=== PATIENT | male | born 1965 | race Caucasian/White ===

== ENCOUNTER 2017-05-21 19:18 | Emergency (ER) | payer MEDICAID ==
[2015-02-28 08:40] VITALS: BMI 26.6
[~2017-05-21 19:18] MED LIST: COREG 3.1253.125 MG NG; COREG 3.1253.125 MG PO; COREG6.25 MG PO; CYCLOBENZAPRINE10 MG PO; ELIQUIS2.5 MG PO; HYDROCODONE-APA1 TAB PO; LISINOPRIL2.5 MG PO; OXYCONTIN20 MG PO; PERCOCET 10/3251 TA1 PO; RESTORIL7.5 MG PO
[2017-08-24] MEDS ORDERED: UNISOM SLEEP AI25 MG PO (12:35)
[2017-08-25] MEDS ORDERED: PREDNISONE10 MG PO (10:17)
[2017-08-30] MEDS ORDERED: LOPRESSOR25 MG PO ×2 (09:26)
== END 2017-05-21 23:40 | disposition home or self-care (01) ==
LOC: D.ER 19:18
DX: M25.512 Pain in left shoulder (principal); M25.511 Pain in right shoulder; I50.9 Heart failure, unspecified; Z95.0 Presence of cardiac pacemaker

== ENCOUNTER 2017-06-19 13:05 | Emergency (ER) | payer MEDICAID ==
[2015-02-28 08:40] VITALS: BMI 26.6
[2017-08-24] MEDS ORDERED: UNISOM SLEEP AI25 MG PO (12:35)
[2017-08-25] MEDS ORDERED: PREDNISONE10 MG PO (10:17)
[2017-08-30] MEDS ORDERED: LOPRESSOR25 MG PO ×2 (09:26)
== END 2017-06-19 14:20 | disposition home or self-care (01) ==
LOC: D.ER 13:05
DX: M25.511 Pain in right shoulder (principal); I50.9 Heart failure, unspecified; Z95.0 Presence of cardiac pacemaker

== ENCOUNTER 2017-07-05 20:47 | Emergency (ER) | payer MEDICAID ==
[2015-02-28 08:40] VITALS: BMI 26.6
[2017-08-24] MEDS ORDERED: UNISOM SLEEP AI25 MG PO (12:35)
[2017-08-25] MEDS ORDERED: PREDNISONE10 MG PO (10:17)
[2017-08-30] MEDS ORDERED: LOPRESSOR25 MG PO ×2 (09:26)
== END 2017-07-05 22:56 | disposition home or self-care (01) ==
LOC: D.ER 20:47
DX: M54.12 Radiculopathy, cervical region (principal); M25.512 Pain in left shoulder; M25.511 Pain in right shoulder

== ENCOUNTER 2017-07-06 23:22 | Emergency (ER) | payer MEDICAID ==
[2015-02-28 08:40] VITALS: BMI 26.6
[2017-08-24] MEDS ORDERED: UNISOM SLEEP AI25 MG PO (12:35)
[2017-08-25] MEDS ORDERED: PREDNISONE10 MG PO (10:17)
[2017-08-30] MEDS ORDERED: LOPRESSOR25 MG PO ×2 (09:26)
== END 2017-07-07 01:46 | disposition home or self-care (01) ==
LOC: D.ER 23:22
DX: R42 Dizziness and giddiness (principal); R00.0 Tachycardia, unspecified; I50.9 Heart failure, unspecified; Z95.0 Presence of cardiac pacemaker

== ENCOUNTER 2017-07-09 22:55 | Emergency (ER) | payer MEDICAID ==
[2015-02-28 08:40] VITALS: BMI 26.6
[2017-07-09 23:36] LABS: BASOPHILS 0.2 % (0-2); EOSINOPHILS 2.3 % (0-7); IMMATURE GRANULOCYTES 1.6 % (0-5); LYMPHOCYTES 13.4 % (15-50); MCH 28.8 pg (26.0-34.0); MCHC 33.3 g/dL (31.0-37.0); MCV 86.5 fL (80.0-100.0); MEAN PLATELET VOLUME 9.9 fL (7.4-10.4); MONOCYTES 7.1 % (2-11); NEUTROPHILS 75.4 % (40-80); PLATELET COUNT 215 10x3/uL (130-400); RBC 4.51 10x6/uL (4.20-6.10); RDW 13.1 % (11.5-14.5); WBC 8.2 10x3/uL (4.8-10.8)
[2017-07-09 23:51] LABS: ALKALINE PHOSPHATASE 89 U/L (46-116); ALT (SGPT) 21 U/L (10-68); BILIRUBIN - TOTAL 0.69 mg/dL (0.2-1.3); CALC OSMOLALITY 280 mosm/kg (275-300); CALCIUM 8.8 mg/dL (8.5-10.1); CARBON DIOXIDE 29.6 mmol/L (21.0-32.0); CHLORIDE - SERUM 103 mmol/L (98-107); GLUCOSE 122 mg/dL (74-106); POTASSIUM - SERUM 3.5 mmol/L (3.5-5.1); PROTEIN - SERUM 6.9 g/dL (6.4-8.2); SODIUM 140 mmol/L (136-145); UREA NITROGEN 14 mg/dL (7-18); eGFR NON AFRICAN AMERICAN 84 mL/min (90-120)
[2017-07-09 23:58] LABS: C-REACTIVE PROTEIN 5.4 mg/dL (0.0-0.9); CREATINE KINASE 26 UL (21-232); PRO BNP 68 pg/mL (0-125)
[2017-07-09 23:59] LABS: TROPONIN-I < 0.017 ng/mL (0.000-0.060)
[2017-08-24] MEDS ORDERED: UNISOM SLEEP AI25 MG PO (12:35)
[2017-08-25] MEDS ORDERED: PREDNISONE10 MG PO (10:17)
[2017-08-30] MEDS ORDERED: LOPRESSOR25 MG PO ×2 (09:26)
== END 2017-07-10 00:40 | disposition home or self-care (01) ==
LOC: D.ER 22:55
PROVIDERS: Family Medicine
DX: M54.12 Radiculopathy, cervical region (principal); G89.29 Other chronic pain; M79.602 Pain in left arm; M79.601 Pain in right arm; I50.9 Heart failure, unspecified; Z95.0 Presence of cardiac pacemaker

== ENCOUNTER 2017-07-12 15:26 | Emergency (ER) | payer MEDICAID ==
[2015-02-28 08:40] VITALS: BMI 26.6
[2017-08-24] MEDS ORDERED: UNISOM SLEEP AI25 MG PO (12:35)
[2017-08-25] MEDS ORDERED: PREDNISONE10 MG PO (10:17)
[2017-08-30] MEDS ORDERED: LOPRESSOR25 MG PO ×2 (09:26)
== END 2017-07-12 17:12 | disposition home or self-care (01) ==
LOC: D.ER 15:26
DX: M79.602 Pain in left arm (principal); M79.601 Pain in right arm; M71.9 Bursopathy, unspecified; I50.9 Heart failure, unspecified; Z95.0 Presence of cardiac pacemaker

== ENCOUNTER 2017-07-15 13:44 | Emergency (ER) | payer MEDICAID ==
[2015-02-28 08:40] VITALS: BMI 26.6
[2017-07-15 16:51] LABS: ERYTHROCYTE SEDIMENTATION RATE 50 mm/hr (0-20)
[2017-07-15 17:19] LABS: MACROPHAGES BF 1 %; NEUT - BF 75 %
[2017-07-20 09:08] LABS: ANA REFLEX - DIRECT Negative (Negative)
[2017-07-28 15:21] LABS: AEROBE ID Final report (())
[2017-08-24] MEDS ORDERED: UNISOM SLEEP AI25 MG PO (12:35)
[2017-08-25] MEDS ORDERED: PREDNISONE10 MG PO (10:17)
[2017-08-30] MEDS ORDERED: LOPRESSOR25 MG PO ×2 (09:26)
== END 2017-07-15 17:28 | disposition home or self-care (01) ==
LOC: D.ER 13:44
PROVIDERS: Emergency Medicine; Physician Assistant
DX: M25.562 Pain in left knee (principal); I50.9 Heart failure, unspecified; Z95.0 Presence of cardiac pacemaker

== ENCOUNTER → 2017-08-11 17:56 | Outpatient (CLI) | payer MEDICAID ==
[2015-02-28 08:40] VITALS: BMI 26.6
[~2017-08-11 17:56] MED LIST changes: +LOPRESSOR25 MG PO; +PREDNISONE10 MG PO; +UNISOM SLEEP AI25 MG PO
== END | disposition home or self-care (01) ==
LOC: D.LABREF 17:56
DX: M17.12 Unilateral primary osteoarthritis, left knee (principal); Z11.8 Encounter for screening for other infectious and parasitic diseases

== ENCOUNTER 2017-08-30 05:19 | Inpatient (IN) | payer MEDICAID | END 2017-09-02 14:34 | disposition home health service (06) | DRG 470 | LOC: D.SDCHOLD 05:19 → D.MS 15:20 | PROC: 0SRD0JZ Replacement of Left Knee Joint with Synthetic Substitute, Open Approach (ICD-10-PCS; principal; 2017-08-30) | DX: M17.12 Unilateral primary osteoarthritis, left knee (principal); M90.562 Osteonecrosis in diseases classified elsewhere, left lower leg; I10 Essential (primary) hypertension; Z95.0 Presence of cardiac pacemaker ==

== ENCOUNTER 2017-12-19 00:06 | Emergency (ER) | payer MEDICAID ==
[2017-09-01 04:06] VITALS: BMI 30.3
[2017-12-19 01:36] LABS: BASOPHILS 0.4 % (0-2); EOSINOPHILS 4.8 % (0-7); HEMATOCRIT 40.4 % (42.0-54.0); HEMOGLOBIN 13.5 g/dL (13.5-17.5); IMMATURE GRANULOCYTES 1.3 % (0-5); MCH 28.7 pg (26.0-34.0); MCHC 33.4 g/dL (31.0-37.0); MONOCYTES 6.4 % (2-11); NEUTROPHILS 72.1 % (40-80); RDW 14.2 % (11.5-14.5); WBC 8.3 10x3/uL (4.8-10.8)
[2017-12-19 01:39] LABS: PLATELET COUNT 199 10x3/uL (130-400)
[2017-12-19 01:46] LABS: INR 1.05 (0.85-1.17); PROTIME 13.3 SECONDS (11.6-15.0)
[2017-12-19 01:52] LABS: ALBUMIN 3.2 g/dL (3.4-5.0); ANION GAP 11.9 mmol/L (8-16); BILIRUBIN - TOTAL 0.79 mg/dL (0.2-1.3); CALCIUM 8.8 mg/dL (8.5-10.1); CARBON DIOXIDE 28.3 mmol/L (21.0-32.0); CREATININE - SERUM 1.2 mg/dL (0.6-1.3); POTASSIUM - SERUM 3.2 mmol/L (3.5-5.1); PROTEIN - SERUM 6.9 g/dL (6.4-8.2)
== END 2017-12-19 03:37 | disposition home or self-care (01) ==
LOC: D.ER 00:06
PROVIDERS: Family Medicine
DX: B36.9 Superficial mycosis, unspecified (principal); R93.5 Abnormal findings on diagnostic imaging of other abdominal regions, including retroperitoneum; E87.6 Hypokalemia

== ENCOUNTER → 2017-12-30 10:04 | Outpatient (CLI) | payer MEDICAID ==
[2017-09-01 04:06] VITALS: BMI 30.3
== END | disposition home or self-care (01) ==
LOC: D.MRI 12-29 15:00
DX: M25.551 Pain in right hip (principal)

== ENCOUNTER → 2018-01-11 09:11 | Outpatient (CLI) | payer MEDICAID ==
[2017-09-01 04:06] VITALS: BMI 30.3
== END | disposition home or self-care (01) ==
LOC: D.SP 09:11 → D.RAD 10:00 → D.SP 10:00
DX: M16.11 Unilateral primary osteoarthritis, right hip (principal); Z01.812 Encounter for preprocedural laboratory examination

== ENCOUNTER 2018-06-24 20:08 | Emergency (ER) | payer MEDICAID ==
[2018-06-24 22:20] LABS: BASOPHILS 0.5 % (0-2); EOSINOPHILS 4.7 % (0-7); HEMATOCRIT 43.7 % (42.0-54.0); HEMOGLOBIN 14.7 g/dL (13.5-17.5); IMMATURE GRANULOCYTES 0.7 % (0-5); LYMPHOCYTES 14.4 % (15-50); MCH 28.9 pg (26.0-34.0); MCHC 33.6 g/dL (31.0-37.0); MEAN PLATELET VOLUME 9.9 fL (7.4-10.4); MONOCYTES 9.6 % (2-11); NEUTROPHILS 70.1 % (40-80); PLATELET COUNT 202 10x3/uL (130-400); RBC 5.08 10x6/uL (4.20-6.10); RDW 13.8 % (11.5-14.5); WBC 8.1 10x3/uL (4.8-10.8)
[2018-06-24 22:35] LABS: ALBUMIN 3.6 g/dL (3.4-5.0); ALKALINE PHOSPHATASE 95 U/L (46-116); ALT (SGPT) 16 U/L (10-68); BILIRUBIN - TOTAL 0.89 mg/dL (0.2-1.3); CALC OSMOLALITY 277 mosm/kg (275-300); CALCIUM 9.2 mg/dL (8.5-10.1); CARBON DIOXIDE 30.5 mmol/L (21.0-32.0); CHLORIDE - SERUM 103 mmol/L (98-107); CREATINE KINASE 69 UL (21-232); CREATININE - SERUM 1.1 mg/dL (0.6-1.3); GLUCOSE 90 mg/dL (74-106); POTASSIUM - SERUM 3.9 mmol/L (3.5-5.1); PROTEIN - SERUM 7.5 g/dL (6.4-8.2); SODIUM 139 mmol/L (136-145); TROPONIN-I < 0.017 ng/mL (0.000-0.060); UREA NITROGEN 12 mg/dL (7-18); eGFR NON AFRICAN AMERICAN 75 mL/min (90-120)
== END 2018-06-25 00:01 | disposition home or self-care (01) ==
LOC: D.ER 20:08
PROVIDERS: Emergency Medicine
DX: S46.211A Strain of muscle, fascia and tendon of other parts of biceps, right arm, initial encounter (principal); X58.XXXA Exposure to other specified factors, initial encounter; Y93.89 Activity, other specified; Y92.019 Unspecified place in single-family (private) house as the place of occurrence of the external cause; Z95.0 Presence of cardiac pacemaker; I10 Essential (primary) hypertension

== ENCOUNTER 2018-07-11 14:15 | Inpatient (IN) | payer MEDICARE ==
[~2018-07-11] VITALS: Ht 175.3 cm; Wt 90.9 kg
--- NOTE | ~2018-07-11 | MORECARE ---
CASE MANAGEMENT DISCHARGE SUMMARY PATIENT: SUPRIYA CAMPO UNIT: [id number] ADM DATE: 07/11/18 AGE: 52 : 67 SEX: M ROOM/BED: D.1202 AUTHOR: TOD RICHARDSON PHYSICIAN: REFERRING PHYSICIAN: RO MORRISON MD DATE OF SERVICE: 07/13/18 Discharge Plan Patient Name: SUPRIYA CAMPO Facility: [facility]:[place] : 1965 Planned Disposition: Home Anticipated Discharge Date: 07/13/18 Discharge Date: 07/13/2018 Expected LOS: 2 Initial Reviewer: [email or web address] Initial Review Date: 07/13/2018 Generated: 07/13/18 5:15 pm DCPIA - Discharge Planning Initial Assessment Updated by [email or web address]: Abhay Yin on 07/13/18 4:14 pm * Is the patient Alert and Oriented? Yes * How many steps to enter\exit or inside your home? NONE * PCP DR. PRISCILLA VELAZCO * Pharmacy [facility] * Preadmission Environment Home Alone * ADLs Independent * Equipment Bedside Commode Cane Walker * Other Equipment NO MEDICAL EQUIPMENT PROVIDER PREFERENCE * List name and contact numbers for known caregivers / representatives who currently or will assist patient after discharge: FRANCOISE PEREZ DTR, * Verbal permission to speak to the caregivers and representatives has been obtained from the patient. N/A * Community resources currently utilized None * Please name any agencies selected above. NONE * Additional services required to return to the preadmission environment? No * Can the patient safely return to the preadmission environment? Yes * Has this patient been hospitalized within the prior 30 days at any hospital? No Coverage Notice Reviewer: [id number] - Abhay Yin Notice Issued Date-Time: 07/13/2018 13:35 Notice Type: IM Discharge Notice Notice Delivered To: Patient Relationship to Patient: Industrial Nurse Name: Delivery Method: HAND - Hand Delivered Sonja Days: Prior Verbal Notification: Recipient Understood Notice: Yes Recipient Signature: Yes Med Rec Note Co-signed by Attending: Coverage Notice Comment: Patient Name: SUPRIYA CAMPO Page [id number] at 1616 All edits/amendments must be made on the electronic document DICTATION DATE: 07/13/181614 VESSEL LINER: MEENU 07/13/181614 RPT#: [id number] DC DATE:07/13/18 STATUS: DIS IN [facility] [address] [place] [address] END OF REPORT
--- NOTE | ~2018-07-11 | MORECARE ---
CASE MANAGEMENT DISCHARGE SUMMARY PATIENT: SUPRIYA CAMPO UNIT: [id number] ADM DATE: 07/11/18 AGE: 52 : 67 SEX: M ROOM/BED: D.1202 AUTHOR: DYLAN,DOC PHYSICIAN: REFERRING PHYSICIAN: RO MORRISON MD DATE OF SERVICE: 07/13/18 Discharge Plan Patient Name: SUPRIYA CAMPO Facility: [facility]:[place] : 1965 Planned Disposition: Home Anticipated Discharge Date: 07/13/18 Discharge Date: 07/13/2018 Expected LOS: 2 Initial Reviewer: [email or web address] Initial Review Date: 07/13/2018 Generated: 07/13/18 5:26 pm Comments DCP- Discharge Planning Updated by [id number]: Abhay Yin on 07/13/18 3:[address] Patient Name: SUPRIYA CAMPO Admission Status: ER Accout number: [id number] Admission Date: 07-11-2018 : 1965 Admission Diagnosis: Attending: RO VANESSA Current LOS: 2 Anticipated DC Date: 07-13-2018 Planned Disposition: Home Primary Insurance: UNINSURED DISCOUNT PLAN Discharge Planning Comments: CM MET WITH PT IN ROOM TO DISCUSS DISCHARGE PLANNING AND NEEDS. PT REPORTS LIVING AT HOME INDEPENDENTLY AND ALONE. PT HAS "EVERYTHING" HE COULD POSSIBLY NEED AT HOME STATING HE HAS IT FROM A PREVIOUS KNEE SURGERY. PT HAS NOT PREFERNCE ON MEDICAL EQUIPMENT PROVIDER. PT HAS NO OUTSIDE SERVICES ASSISTING IN THE HOME. CM DISCUSSED AVAILABILITY OF HOME HEALTH, REHAB SERVICES AND MEDICAL EQUIPMENT. PT DENIES DISCHARGE NEEDS, REPORTS HE WILL CALL A FRIEND WHO WILL PICK HIM UP FOR DISCHARGE HOME. IMPORTANT MESSAGE FROM MEDICARE PROVIDED AND EXPLAINED. BEDSIDE NURSE NOTIFIED. Embossing Press Operator: Abhay Yin DCPIA - Discharge Planning Initial Assessment Updated by [id number]: Abhay Yin on 07/13/18 4:14 pm * Is the patient Alert and Oriented? Yes * How many steps to enter\\exit or inside your home? NONE * PCP DR. PRISCILLA VELAZCO * Pharmacy [facility] * Preadmission Environment Home Alone * ADLs Independent * Equipment Bedside Commode Cane Walker * Other Equipment NO MEDICAL EQUIPMENT PROVIDER PREFERENCE * List name and contact numbers for known caregivers / representatives who currently or will assist patient after discharge: FRANCOISE PEREZ, DTR, * Verbal permission to speak to the caregivers and representatives has been obtained from the patient. N/A * Community resources currently utilized None * Please name any agencies selected above. NONE * Additional services required to return to the preadmission environment? No * Can the patient safely return to the preadmission environment? Yes * Has this patient been hospitalized within the prior 30 days at any hospital? No Coverage Notice Reviewer: [email or web address] Darline Yin Notice Issued Date-Time: 07/13/2018 13:35 Notice Type: IM Discharge Notice Notice Delivered To: Patient Relationship to Patient: Fisher Gill Net Name: Delivery Method: HAND - Hand Delivered Sonja Days: Prior Verbal Notification: Recipient Understood Notice: Yes Recipient Signature: Yes Med Rec Note Co-signed by Attending: Coverage Notice Comment: Last DP export: 07/13/18 3:15 Patient Name: SUPRIYA CAMPO Page [phone] at 1626 All edits/amendments must be made on the electronic document DICTATION DATE: 07/13/181624 SUEDING AND BUFFING MACHINE OPERATOR: MEENU 07/13/185 RPT#: [id number] DC DATE:07/13/18 STATUS: DIS IN [facility] [address] [place] [address] END OF REPORT
[~2018-07-11 14:15] MED LIST changes: +NORCO 5/325 TAB1 TAB PO; +TORADOL10 MG PO
[2018-07-11 15:23] LABS: BASOPHILS 0.3 % (0-2); EOSINOPHILS 2.3 % (0-7); HEMATOCRIT 42.3 % (42.0-54.0); HEMOGLOBIN 14.5 g/dL (13.5-17.5); IMMATURE GRANULOCYTES 0.5 % (0-5); LYMPHOCYTES 11.3 % (15-50); MCH 29.1 pg (26.0-34.0); MCHC 34.3 g/dL (31.0-37.0); MCV 84.8 fL (80.0-100.0); MEAN PLATELET VOLUME 10.2 fL (7.4-10.4); MONOCYTES 5.8 % (2-11); NEUTROPHILS 79.8 % (40-80); PLATELET COUNT 213 10x3/uL (130-400); RBC 4.99 10x6/uL (4.20-6.10); RDW 13.3 % (11.5-14.5); WBC 7.8 10x3/uL (4.8-10.8)
[2018-07-11 15:37] LABS: ALBUMIN 3.4 g/dL (3.4-5.0); ALKALINE PHOSPHATASE 96 U/L (46-116); ALT (SGPT) 17 U/L (10-68); BILIRUBIN - TOTAL 0.86 mg/dL (0.2-1.3); CALC OSMOLALITY 282 mosm/kg (275-300); CALCIUM 8.9 mg/dL (8.5-10.1); CARBON DIOXIDE 29.4 mmol/L (21.0-32.0); CHLORIDE - SERUM 103 mmol/L (98-107); CREATININE - SERUM 1.1 mg/dL (0.6-1.3); GLUCOSE 95 mg/dL (74-106); POTASSIUM - SERUM 3.6 mmol/L (3.5-5.1); PROTEIN - SERUM 7.5 g/dL (6.4-8.2); SODIUM 142 mmol/L (136-145); UREA NITROGEN 13 mg/dL (7-18); eGFR NON AFRICAN AMERICAN 75 mL/min (90-120)
[2018-07-11 20:23] VITALS: BP 136/80
[2018-07-11 22:46] VITALS: BP 136/80; BMI 29.6
[2018-07-12 00:33] VITALS: BP 155/91
[2018-07-12 04:45] VITALS: BP 120/76
[2018-07-12 06:50] LABS: BASOPHILS 0.4 % (0-2); EOSINOPHILS 4.6 % (0-7); HEMATOCRIT 39.6 % (42.0-54.0); IMMATURE GRANULOCYTES 0.4 % (0-5); LYMPHOCYTES 13.5 % (15-50); MCH 28.1 pg (26.0-34.0); MCHC 32.8 g/dL (31.0-37.0); MCV 85.5 fL (80.0-100.0); MEAN PLATELET VOLUME 10.2 fL (7.4-10.4); MONOCYTES 9.4 % (2-11); NEUTROPHILS 71.7 % (40-80); PLATELET COUNT 191 10x3/uL (130-400); RBC 4.63 10x6/uL (4.20-6.10); RDW 13.7 % (11.5-14.5); WBC 5.6 10x3/uL (4.8-10.8)
[2018-07-12 07:18] LABS: ALBUMIN 2.8 g/dL (3.4-5.0); ANION GAP 13.3 mmol/L (8-16); BILIRUBIN - TOTAL 0.91 mg/dL (0.2-1.3); CALCIUM 8.5 mg/dL (8.5-10.1); CARBON DIOXIDE 24.7 mmol/L (21.0-32.0); CREATININE - SERUM 1.2 mg/dL (0.6-1.3); PROTEIN - SERUM 6.3 g/dL (6.4-8.2)
[2018-07-12 08:35] VITALS: BP 113/68
[2018-07-12 15:46] VITALS: Ht 175.3 cm; Wt 90.9 kg
[2018-07-12 16:17] VITALS: BP 112/86
[2018-07-12 17:56] VITALS: BP 124/78
[2018-07-12 20:00] VITALS: BP 116/62
[2018-07-13 00:02] VITALS: BP 131/85
[2018-07-13 04:00] VITALS: BP 130/74
[2018-07-13 06:44] LABS: BASOPHILS 0.3 % (0-2); EOSINOPHILS 5.2 % (0-7); HEMATOCRIT 37.8 % (42.0-54.0); HEMOGLOBIN 12.3 g/dL (13.5-17.5); IMMATURE GRANULOCYTES 0.5 % (0-5); LYMPHOCYTES 11.6 % (15-50); MCH 28.1 pg (26.0-34.0); MCHC 32.5 g/dL (31.0-37.0); MCV 86.5 fL (80.0-100.0); MEAN PLATELET VOLUME 10.2 fL (7.4-10.4); MONOCYTES 7.8 % (2-11); NEUTROPHILS 74.6 % (40-80); PLATELET COUNT 179 10x3/uL (130-400); RBC 4.37 10x6/uL (4.20-6.10); RDW 13.4 % (11.5-14.5); WBC 6.3 10x3/uL (4.8-10.8)
[2018-07-13 07:37] LABS: ALBUMIN 2.6 g/dL (3.4-5.0); ANION GAP 15.7 mmol/L (8-16); BILIRUBIN - TOTAL 0.9 mg/dL (0.2-1.3); CALCIUM 8.1 mg/dL (8.5-10.1); CARBON DIOXIDE 22.9 mmol/L (21.0-32.0); CREATININE - SERUM 1.2 mg/dL (0.6-1.3); POTASSIUM - SERUM 3.6 mmol/L (3.5-5.1); PROTEIN - SERUM 6.1 g/dL (6.4-8.2)
[2018-07-13 07:39] LABS: VANCOMYCIN - TROUGH 67.9 ug/mL (10.0-20.0)
[2018-07-13] MEDS ORDERED: NORCO 10-325 TA1 TAB PO (12:32)
== END 2018-07-13 15:18 | disposition home or self-care (01) | DRG 603 ==
LOC: D.ER 14:15 → D.EDHOLD 18:32 → D.M3 18:32
PROVIDERS: Family Medicine
PROC: 2W3EX1Z Immobilization of Right Hand using Splint (ICD-10-PCS; principal; 2018-07-12)
DX: L03.113 Cellulitis of right upper limb (principal); S62.001A Unspecified fracture of navicular [scaphoid] bone of right wrist, initial encounter for closed fracture; X58.XXXA Exposure to other specified factors, initial encounter; I10 Essential (primary) hypertension; Z95.0 Presence of cardiac pacemaker

== ENCOUNTER → 2018-07-14 13:35 | Outpatient (CLI) | payer MEDICARE ==
[2018-07-12 15:46] VITALS: BMI 29.6
[~2018-07-14 13:35] MED LIST changes: +NORCO 10-325 TA1 TAB PO
== END | disposition home or self-care (01) ==
LOC: D.RAD 13:35
DX: M25.511 Pain in right shoulder (principal)

== ENCOUNTER → 2018-08-18 07:00 | Day surgery (SDC) | payer MEDICARE ==
[2018-08-16 15:11] LABS: HEMOGLOBIN 15.4 g/dL (13.5-17.5); MCH 29.3 pg (26.0-34.0); MCHC 34.2 g/dL (31.0-37.0); MCV 85.7 fL (80.0-100.0); MEAN PLATELET VOLUME 10.1 fL (7.4-10.4); RBC 5.25 10x6/uL (4.20-6.10); RDW 14.1 % (11.5-14.5); WBC 8.1 10x3/uL (4.8-10.8)
[~2018-08-18] VITALS: Ht 175.3 cm; Wt 89.4 kg
[~2018-08-18 07:00] MED LIST changes: +HYDROCODON-ACE1 EA10 PO; +MIRALAX17 GM PO
[2018-08-18 08:45] VITALS: BP 122/80; Ht 175.3 cm; Wt 89.4 kg
[2018-08-18 08:50] LABS: CALC OSMOLALITY 278 mosm/kg (275-300); CALCIUM 8.5 mg/dL (8.5-10.1); CARBON DIOXIDE 24.4 mmol/L (21.0-32.0); CHLORIDE - SERUM 104 mmol/L (98-107); POTASSIUM - SERUM 3.8 mmol/L (3.5-5.1); SODIUM 140 mmol/L (136-145); UREA NITROGEN 15 mg/dL (7-18); eGFR NON AFRICAN AMERICAN 84 mL/min (90-120)
[2018-08-18 08:54] LABS: GLUCOSE 86 mg/dL (74-106)
--- NOTE | 2018-08-18 12:06 | OP ---
PATIENT NAME: SUPRIYA CAMPO MEDICAL RECORD: [id number] :67 LOCATION:[facility] ADMISSION DATE: SURGEON: CHANTAL JAIMES, TEDDY VERDUGO DATE OF OPERATION: 08/18/2018 PREOPERATIVE DIAGNOSES: 1. Impingement syndrome of the right shoulder. 2. Severe biceps tendinitis of the right shoulder. 3. Acromioclavicular arthritis of the right shoulder. 4. Rotator cuff tear. POSTOPERATIVE DIAGNOSES: 1. Biceps tendinitis. 2. Impingement syndrome. 3. Acromioclavicular arthritis. PROCEDURES: 1. Arthroscopic biceps tenotomy. 2. Arthroscopic subacromial decompression with acromioplasty and bursectomy. 3. Arthroscopic distal clavicle excision done through separate incision - 1 cm. SURGEON: Teddy Cornejo MD ANESTHESIA: General. INTRAOPERATIVE COMPLICATIONS: None. SUMMARY OF PATHOLOGIC FINDINGS: The patient indeed was found to have severe biceps tendinitis with intrasubstance tearing, very red and inflamed. The patient also had a type 3 acromion with excoriation of the coracoacromial ligament impinging. Lastly, the patient had osteophytes and grade IV chondromalacia of the acromioclavicular joint. OPERATIVE SUMMARY IN DETAIL: After obtaining the appropriate preoperative orthopedic surgery consent as well as anesthetic consultation, evaluation, and clearance, the patient was brought to the operating room and placed on the operating table in the supine position. After general laryngeal mask was administered, the patient was placed in left lateral decubitus position. All pressure points were well padded to include down leg peroneal pad as well as axillary roll. The patient was held firmly to the operating table using the vacuum pack suction system. Right upper extremity and shoulder were prepped and draped in routine sterile fashion. Arm was held in the Arthrex traction boom in 30 degrees of forward flexion, 30 degrees of abduction, and 10 pounds of traction laterally. Arthroscopy was established in the glenohumeral joint, where posterior portal and anterior portal was established in the anterior safe interval. Diagnostic arthroscopy did reveal that the patient had significant synovitis inside the joint. The biceps tendon was as described above. It was tenotomized at the bicipital labral junction using the [place] tissue ablation system. Mild labral cleanup was done with gentle denudement of the superior aspect of the glenoid for reattachment of the glenoid. Having completed this, attention was turned to the subacromial space. While in the subacromial space, [place] tissue ablation system was utilized to denude the undersurface of the acromion of all soft tissue elements and release the coracoacromial ligament. A 5-0 barrel bur was then used to perform acromioplasty at the level of acromioclavicular joint. Then, through a separate arthroscopic portal OPERATIVE REPORT [id number] SUPRIYA CAMPO anteriorly, under direct arthroscopic visualization, distal clavicle was excised for 1 cm using the 5-0 barrel bur. Lastly, all bursa was removed superiorly, anteriorly, laterally, and posteriorly. The rotator cuff was inspected from the subscapularis to the teres minor. No tearing of full thickness was noted. Having completed this, arthroscopy portals were closed in routine interrupted fashion using 4-0 Prolene. Sterile dressings were applied. The patient was awakened and taken to the recovery room in stable condition. All final needle and sponge count was correct. TRANSINT:[id number] Voice Confirmation ID: [id number] DOCUMENT ID: [id number] CHANTAL JAIMES, TEDDY VERDUGO at 1206 CC: [id number] DICTATION DATE: 08/18/18 1032 BUSINESS RESILIENCY MANAGER: 08/18/18 1116 [facility] [address] [place] [address]
--- NOTE | 2018-08-18 16:22 | NUR ---
1106-RECD FROM PACU. 1136-TOLERATES FULL LIQUIDS WITHOUT NAUSEA. 1200-UP TO BATHROOM, VOIDS AND DRESSED. 1215-D/C HOME VIA WHEELCHAIR
== END | disposition home or self-care (01) ==
LOC: D.OPS 07:00 → D.PAN 17:15
PROVIDERS: Anesthesiology
DX: M75.41 Impingement syndrome of right shoulder (principal); M75.21 Bicipital tendinitis, right shoulder; M13.811 Other specified arthritis, right shoulder; Z01.812 Encounter for preprocedural laboratory examination

== ENCOUNTER 2018-09-03 20:06 | Emergency (ER) | payer MEDICARE ==
[~2018-09-03] VITALS: Ht 175.3 cm; Wt 89.4 kg
[~2018-09-03 20:06] MED LIST changes: -MIRALAX17 GM PO
[2018-09-03 20:15] VITALS: Ht 175.3 cm; Wt 89.4 kg
[2018-09-03] MEDS ORDERED: MIRALAX17 GM PO (20:59)
[2018-09-03 21:09] LABS: ALBUMIN 3.6 g/dL (3.4-5.0); ANION GAP 11.5 mmol/L (8-16); BILIRUBIN - TOTAL 1.05 mg/dL (0.2-1.3); CALCIUM 9.1 mg/dL (8.5-10.1); CARBON DIOXIDE 29.1 mmol/L (21.0-32.0); CREATININE - SERUM 1.2 mg/dL (0.6-1.3); POTASSIUM - SERUM 3.6 mmol/L (3.5-5.1); PROTEIN - SERUM 7.5 g/dL (6.4-8.2)
[2018-09-03 22:26] VITALS: BP 125/71
== END 2018-09-03 22:26 | disposition home or self-care (01) ==
LOC: D.ER 20:06
PROVIDERS: Emergency Medicine
DX: K59.00 Constipation, unspecified (principal); I10 Essential (primary) hypertension

== ENCOUNTER → 2018-09-12 13:32 | Outpatient (CLI) | payer MEDICARE ==
[2018-09-03 20:15] VITALS: BMI 29.1
[~2018-09-12 13:32] MED LIST changes: +MIRALAX17 GM PO
== END | disposition home or self-care (01) ==
LOC: D.CT 08:30 → D.RAD 10:30 → D.CT 15:00
DX: M25.511 Pain in right shoulder (principal)

== ENCOUNTER 2018-12-13 21:19 | Emergency (ER) | payer MEDICARE ==
[~2018-12-13] VITALS: Ht 175.3 cm; Wt 2.3 kg
[2018-12-13 21:34] VITALS: Ht 175.3 cm; Wt 2.3 kg
[2018-12-13 21:56] LABS: BASOPHILS 0.2 % (0-2); EOSINOPHILS 1.5 % (0-7); HEMATOCRIT 45.5 % (42.0-54.0); HEMOGLOBIN 15.9 g/dL (13.5-17.5); IMMATURE GRANULOCYTES 1.9 % (0-5); LYMPHOCYTES 11.1 % (15-50); MCH 30.7 pg (26.0-34.0); MCHC 34.9 g/dL (31.0-37.0); MCV 87.8 fL (80.0-100.0); MONOCYTES 7.2 % (2-11); NEUTROPHILS 78.1 % (40-80); PLATELET COUNT 150 10x3/uL (130-400); RBC 5.18 10x6/uL (4.20-6.10); RDW 14.4 % (11.5-14.5); WBC 10.9 10x3/uL (4.8-10.8)
[2018-12-13 22:04] LABS: APTT 26.6 SECONDS (22.8-39.4); INR 1.08 (0.85-1.17); PROTIME 13.5 SECONDS (11.6-15.0)
[2018-12-13 22:14] LABS: ALBUMIN 3.6 g/dL (3.4-5.0); ALKALINE PHOSPHATASE 82 U/L (46-116); ALT (SGPT) 30 U/L (10-68); BILIRUBIN - TOTAL 0.89 mg/dL (0.2-1.3); CALC OSMOLALITY 282 mosm/kg (275-300); CALCIUM 8.8 mg/dL (8.5-10.1); CARBON DIOXIDE 25.6 mmol/L (21.0-32.0); CHLORIDE - SERUM 105 mmol/L (98-107); CREATININE - SERUM 1.2 mg/dL (0.6-1.3); POTASSIUM - SERUM 3.9 mmol/L (3.5-5.1); SODIUM 141 mmol/L (136-145); UREA NITROGEN 20 mg/dL (7-18); eGFR NON AFRICAN AMERICAN 68 mL/min (90-120)
[2018-12-13 22:17] LABS: GLUCOSE 86 mg/dL (74-106)
[2018-12-13 22:26] LABS: CKMB 0.8 U/L (0.0-3.6); CREATINE KINASE 84 UL (21-232); PRO BNP 93 pg/mL (0-125)
[2018-12-13 22:27] LABS: TROPONIN-I < 0.017 ng/mL (0.000-0.060)
[2018-12-14] MEDS ORDERED: ALBUTEROL SULF8.5 GM INH (00:05)
[2018-12-14 00:22] VITALS: BP 146/84
== END 2018-12-14 00:20 | disposition home or self-care (01) ==
LOC: D.ER 21:19
PROVIDERS: Family Medicine
DX: R06.02 Shortness of breath (principal)

== ENCOUNTER 2019-04-15 14:43 | Emergency (ER) | payer MEDICARE, MEDICAID ==
[~2019-04-15] VITALS: Ht 175.3 cm; Wt 84.1 kg
[~2019-04-15 14:43] MED LIST changes: +ALBUTEROL SULF8.5 GM INH
[2019-04-15 14:57] VITALS: Ht 175.3 cm; Wt 84.1 kg
[2019-04-15 15:20] LABS: BASOPHILS 0.1 % (0-2); HEMATOCRIT 46.7 % (42.0-54.0); HEMOGLOBIN 16.2 g/dL (13.5-17.5); IMMATURE GRANULOCYTES 0.8 % (0-5); LYMPHOCYTES 12.2 % (15-50); MCHC 34.7 g/dL (31.0-37.0); MCV 89.3 fL (80.0-100.0); MEAN PLATELET VOLUME 10.3 fL (7.4-10.4); MONOCYTES 6.4 % (2-11); NEUTROPHILS 78.5 % (40-80); PLATELET COUNT 156 10x3/uL (130-400); RBC 5.23 10x6/uL (4.20-6.10); RDW 12.8 % (11.5-14.5); WBC 7.8 10x3/uL (4.8-10.8)
[2019-04-15 15:36] LABS: ALBUMIN 3.8 g/dL (3.4-5.0); ANION GAP 12.1 mmol/L (8-16); BILIRUBIN - TOTAL 0.96 mg/dL (0.2-1.3); CARBON DIOXIDE 30.5 mmol/L (21.0-32.0); CREATININE - SERUM 1.1 mg/dL (0.6-1.3); MAGNESIUM - SERUM 1.9 mg/dL (1.8-2.4); POTASSIUM - SERUM 3.6 mmol/L (3.5-5.1); PROTEIN - SERUM 6.9 g/dL (6.4-8.2)
[2019-04-15 16:09] LABS: CHOL - HDL RATIO 3.8 ratio (2.3-4.9); LDL-HDL RATIO 1.8 ratio (1.5-3.5)
[2019-04-15 16:35] VITALS: BP 130/68
== END 2019-04-15 16:36 | disposition home or self-care (01) ==
LOC: D.ER 14:43
PROVIDERS: Emergency Medicine
DX: R20.0 Anesthesia of skin (principal); I10 Essential (primary) hypertension; Z86.73 Personal history of transient ischemic attack (TIA), and cerebral infarction without residual deficits